=== PATIENT | male | born 1985 | race Caucasian/White ===

== ENCOUNTER 2017-01-05 20:44 | Emergency (ER) | payer BC ==
[2017-01-05 20:50] VITALS: BP 133/88; PULSE 54; TEMP 97.4; BMI 26.5
--- NOTE | 2017-01-05 21:12 | PDOC ---
History of Present Illness - History of Present Illness Initial Comments: 01/05/17 21:13 The patient is a 31 year old male with no pertinent past medical history presents to the emergency department with a complaint of left hand pain and swelling since just prior to presentation. Patient had fallen down the stairs and landed on his hand in a fist position. Denies head trauma, neck trauma or loss of consciousness. Denies previous hand problems. Denies elbow, shoulder pain. No other injuries. Denies numbness or tingling in the hand. Patient is left hand dominant <Rajesh Dotson - Last Filed: 01/05/17 21:44> <Yas Hayes - Last Filed: 01/06/17 01:48> - General Chief Complaint: Pain, Acute Stated Complaint: INJURY TO LEFT HAND Time Seen by Provider: 01/05/17 20:46 Past History <Rajesh Dotson - Last Filed: 01/05/17 21:44> - Past Medical History Other medical history: DENIES - Psycho/Social/Smoking Cessation Hx Anxiety: No Suicidal Ideation: No Smoking History: Never smoked Have you smoked in the past 12 months: No Information on smoking cessation initiated: No Hx Alcohol Use: Yes Drug/Substance Use Hx: No Substance Use Type: None <Yas Hayes - Last Filed: 01/06/17 01:48> - Past Medical History Allergies/Adverse Reactions: Allergies Allergy/AdvReac Type Severity Reaction Status Date / Time No Known Allergies Allergy Verified 01/05/17 20:45 Home Medications: Ambulatory Orders NK [No Known Home Medication] 05/11/14 Review of Systems - Review of Systems Able to Perform ROS?: Yes Comments:: 01/05/17 21:13 CONSTITUTIONAL: Absent: fever, no chills, no fatigue EYES: Absent: visual changes ENT: Absent: ear pain, no sore throat CARDIOVASCULAR: Absent: chest pain, no palpitations RESPIRATORY: Absent: cough, no SOB GI: Absent: abdominal pain, no nausea, no vomiting, no constipation, no diarrhea GENITOURINARY: Absent: dysuria, no frequency, no hematuria MUSKULOSKELETAL: Present: Left hand pain and swelling Absent: back pain SKIN: Absent: rash NEURO: Absent: headache <Rajesh Dotson - Last Filed: 01/05/17 21:44> *Physical Exam - Vital Signs Last Vital Signs Temp Pulse Resp BP Pulse Ox 97.4 F L 54 L 16 133/88 100 01/05/17 20:45 01/05/17 20:45 01/05/17 20:45 01/05/17 20:45 01/05/17 20:45 - Physical Exam Comments: 01/05/17 21:14 GENERAL: The patient is awake, alert, and fully oriented, in no acute distress. HEAD:Normal with no signs of trauma. EYES: Pupils equal, round and reactive to light, extraocular movements intact, sclera anicteric, conjunctiva clear. EXTREMITIES: Left hand shows moderate edema, erythema and faint ecchymosis of the dorsum of the 3rd MCP joint, no deformity, mild tenderness at the MCP joint. Otherwise full passive and active movement in the left hand. Minimal snuffbox tenderness in the left hand. No other tenderness, deformity or edema noted in the left extremity. Left wrist and forearm are non tender, non edematous or erythematous. Remainder of extremity exam shows Normal range of motion, no edema or deformities. NEUROLOGICAL: Normal speech, normal gait. PSYCH: Normal mood, normal affect. SKIN: Warm, Dry, normal turgor, no rashes or lesions noted. <Rajesh Dotson - Last Filed: 01/05/17 21:44> - Vital Signs Last Vital Signs Temp Pulse Resp BP Pulse Ox 97.4 F L 54 L 16 133/88 100 01/05/17 20:45 01/05/17 20:45 01/05/17 20:45 01/05/17 20:45 01/05/17 20:45 <Yas Hayes - Last Filed: 01/06/17 01:48> Progress Note - Progress Note Progress Note: Documentation has been prepared under my direction and personally reviewed by me in its entirety. I attest that this documented accurately reflects all work, treatment, procedures and medical decision making performed by me. <Yas Hayes - Last Filed: 01/06/17 01:48> Medical Decision Making - Medical Decision Making As noted above, this 31-year-old man without significant past medical history, left hand dominant, slipped down 3 stairs just prior to presentation. Patient denies lightheadedness or other abnormalities prior to his falling. Patient impacted left hand against a step as he fell. He presents with pain and swelling in the left hand. Exam as noted. Left hand x-ray shows comminuted, slightly displaced fracture at the base of the third metacarpal bone. No other fracture /dislocation noted. Results discussed with the patient. He has no orthopedic surgeon/hand surgeon. Dorsal/volar splints fashioned from Ortho-Glass material. Splints extend from proximal forearm to hand just above the MCP joints; splints secured with Camilo wraps. Neurovascular functioning intact after placement of the splints. Patient preferred not to wear a sling, stating that he will keep his left hand elevated to heart level or above as much as possible. Referral information for Drs. Payan/Koki given to the patient. He should call the office tomorrow and make arrangements to be seen within the next 48 hours. Meanwhile, patient states that he does not need prescription strength pain medication. He will take Tylenol/Aleve/Motrin ([id number]) as needed. He will return to the emergency room if he has severe pain/swelling prior to seeing orthopedists <Yas Hayes - Last Filed: 01/06/17 01:48> *DC/Admit/Observation/Transfer - Attestations Scribe Attestion: 01/05/17 21:15 Documentation prepared by Rajesh Dotson, acting as medical secretary for Yas Hayes MD <Rajesh Dotson - Last Filed: 01/05/17 21:44> <Yas Hayes - Last Filed: 01/06/17 01:48> Diagnosis at time of Disposition: Fracture of metacarpal base of left hand, closed Qualifiers: Encounter type: initial encounter Qualified Code(s): S62.319A - Displaced fracture of base of unspecified metacarpal bone, initial encounter for closed fracture - Discharge Dispostion Disposition: HOME Condition at time of disposition: Stable - Referrals Referrals: Conor Payan MD [Staff Physician] - Call tomorrow - Patient Instructions Printed Discharge Instructions: DI for a Hand Fracture Additional Instructions: keep splint in place elevate/ice to hand as much as possible until seen by orthopedist sling when up and around followup with Dr Payan/ Dr Telles within 48 hours Aleve/Motrin/Tylenol as needed
== END 2017-01-05 22:14 | disposition home or self-care (01) ==
LOC: FER 20:44
PROC: 2W3FX1Z Immobilization of Left Hand using Splint (ICD-10-PCS; principal; 2017-01-05)
DX: S62.319A Displaced fracture of base of unspecified metacarpal bone, initial encounter for closed fracture (principal); W10.9XXA Fall (on) (from) unspecified stairs and steps, initial encounter; Y93.9 Activity, unspecified; Y92.9 Unspecified place or not applicable
CPT/HCPCS: 73130-TC-LT; 99282-25